=== PATIENT | female | born 1980 | race Caucasian/White ===

== ENCOUNTER 2017-08-08 10:04 | Inpatient (IN) | payer BC ==
[~2017-08-08] VITALS: Ht 172.7 cm; Wt 85.8 kg
[~2017-08-08 10:04] MED LIST: FERROUS SU325 MG/TAB PO; MOTRIN 800800 MG/TAB PO; MUCINEX1200 MG PO; PERCOCET 325 MG1 TA2 PO; PRENATAL1 TA1 PO
[2017-09-25] VITALS (32 sets, daily range): BP systolic 96–139; BP diastolic 49–76; PULSE 58–104; TEMP 98–98.9
[2017-09-25] MEDS ORDERED: [UNRECOGNIZED DRUG - OTHER] (10:31)
[2017-09-25] MEDS ORDERED: TOPROL XL 25MG25 MG (10:31)
[2017-09-25] MEDS ORDERED: VALTREX1 GM PO (10:32)
[2017-09-25] MEDS ORDERED: TUMS500 MG (11:31)
[2017-09-25 11:51] LABS: BASO # 0.1 (0.0-0.2); BASO % 0.6 % (0.0-2.0); EOS # 0.1 (0.0-0.7); EOS % 0.9 % (0-4.0); GRAN # 6.8 (1.4-6.5); GRAN % 69.1 % (42.2-75.2); HEMATOCRIT 38.7 % (37.0-47.0); HEMOGLOBIN 12.8 g/dl (12.5-16.0); LYMPH # 2.3 (1.2-3.4); LYMPH % 23.7 % (20.0-51.0); MEAN CELL VOLUME 90 fl (80.0-100.0); MEAN CORPUSCULAR HEMOGLOBIN 30 pg (27.0-31.0); MEAN CORPUSCULAR HGB CONC 33 g/dl (33.0-37.0); MEAN PLATELET VOLUME 10.8 fl (7.4-10.4); MONO # 0.5 (0.1-0.6); MONO % 5.3 % (1.7-9.3); PLATELET COUNT 240 K/mm3 (130-400); RED BLOOD COUNT 4.32 M/mm3 (4.10-5.30); WHITE BLOOD COUNT 9.9 K/mm3 (4.8-10.8)
[2017-09-26 00:35] VITALS: BP 96/39; PULSE 50; TEMP 98.3
[2017-09-26 06:30] VITALS: BP 97/56; PULSE 56; TEMP 97.6
[2017-09-26 08:30] VITALS: BP 91/63; PULSE 55
[2017-09-26 10:51] VITALS: BP 105/53; PULSE 62; TEMP 97.5
[2017-09-26] MEDS ORDERED: PERCOCET 325 MG1 TA2 PO (11:11)
[2017-09-26] MEDS ORDERED: IBU800 M1 PO (11:11)
[2017-09-26 16:48] VITALS: BP 111/62; PULSE 74; TEMP 97.6
[2017-09-26 20:00] VITALS: BP 103/61; PULSE 59; TEMP 98.2
[2017-09-27 08:18] VITALS: BP 97/56; PULSE 54; TEMP 97.6
== END 2017-09-27 13:50 | disposition home or self-care (01) | DRG 775 ==
LOC: LDR 09-25 09:27 → OB 09-25 10:54 → LDR 09-25 10:54 → OB 09-25 21:00 → EDSTATUS 10-05 09:22 → LDR 10-05 09:25 → LDRO 10-05 10:04
PROVIDERS: Obstetrics & Gynecology
PROC: 10E0XZZ Delivery of Products of Conception, External Approach (ICD-10-PCS; principal; 2017-09-25)
PROC: 0KQM0ZZ Repair Perineum Muscle, Open Approach (ICD-10-PCS; 2017-09-25)
DX: O70.1 Second degree perineal laceration during delivery (principal); Z3A.39 39 weeks gestation of pregnancy; Z37.0 Single live birth
CPT/HCPCS: J2405; J2590; J7120